=== PATIENT | male | born 1970 | race Caucasian/White ===

== ENCOUNTER 2023-07-23 11:27 | Emergency (ER) | payer SELFPAY ==
[2023-07-23 11:28] VITALS: BP 135/92; PULSE 93; RESP 18; TEMP 37.4; O2SAT 94; BMI 27.3
--- NOTE | 2023-07-23 11:39 | ED.VIS.DYS ---
HPI History of Present Illness Chief Complaint: Cold Sx PFSH PFSH Allergy/AdvReac Type Severity Reaction Status Date / Time No Known Allergies Allergy Verified 07/23/23 11:28 Social History Smoking Status: Former smoker EXAM Physical Exam Const Vital Signs: 07/23/23 11:28 07/23/23 12:09 07/23/23 12:09 Temperature 99.3 F H 98.1 F Temperature Source Temporal Oral Pulse Rate 93 82 Respiratory Rate 18 16 Respiratory Effort Respiratory Pattern Blood Pressure 135/92 H 136/84 H Blood Pressure Mean 106 101 Pulse Ox 94 96 97 Oxygen Delivery Method Room Air Room Air Room Air 07/23/23 12:10 07/23/23 13:26 Temperature 98.2 F Temperature Source Oral Pulse Rate 84 Respiratory Rate 20 H Respiratory Effort Normal Non-Labored Respiratory Pattern Normal Blood Pressure 137/84 H Blood Pressure Mean 101 Pulse Ox 98 Oxygen Delivery Method Room Air [facility] MDM Narrative Medical decision making narrative: HISTORY OF PRESENT ILLNESS: 52-year-old male here with cough congestion shortness of breath of 1 month. 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 The patient denies recent surgery in the last 4 weeks or immobilization in the last 3 days, denies previous diagnosis of DVT or PE, hemoptysis, unilateral leg swelling or malignancy with treatment the last 6 months or palliative. No estrogen use noted. REVIEW OF SYSTEMS: Pertinent positives: Shortness breath, congestion Pertinent negatives: Chest pain, hemoptysis PHYSICAL EXAM: Nursing triage notes reviewed, Vital signs reviewed Constitutional: please see mdm HENT: MMM Eyes: Pupils equal round and reactive to light, Extraocular muscles intact Neck: No stridor, no JVD, full neck ROM Lungs: Coarse breath sounds, faint expiratory wheezing. No increased work of breathing, no conversational dyspnea, no accessory muscle use, no nasal flaring. No respiratory distress noted Heart: Regular rate and rhythm, No murmurs, No rubs and No gallops, 2+ distal pulses (radial, femoral, posterior tibial) in all extremities Abdomen: Soft, there is no tenderness, rigidity, rebound or guarding, no obvious peritoneal signs, no palpable pulsatile abdominal masses, no auscultated abdominal bruit : No CVAT Extremities: No edema Neuro: No focal neurological deficits, cranial nerves II through XII intact, 5/5 strength in all extremities. Intact sensation to light touch in all extremities, 2+ reflexes bilateral patella tendons. Normal gait. No ataxia. Skin: No rash or lesions noted MEDICAL DECISION MAKING: Chief Complaint: Shortness of breath, congestion External records reviewed: No recent advanced imaging of the chest, no recent catheterizations, stress test or echocardiograms noted in the chart Factors affecting care: none Social determinants of health: Long-term tobacco use History obtained from others: none Consults: none MDM Narrative: Patient was hemodynamically stable, afebrile, nontoxic-appearing. Lung exam with coarse breath sounds faint wheezing I considered the following differential diagnosis: Infectious etiology such as pneumonia or COVID, arrhythmia, environmental lung injury (i.e. foam exposure), PE, ACS, anemia I obtained a broad lab and imaging work-up to further elucidate the etiology of the patient's complaints ALL IMAGES (IF OBTAINED) HAVE BEEN PERSONALLY REVIEWED AND INTERPRETED BY MYSELF. EKG with normal sinus rhythm, right bundle branch block, right axis deviation, normal intervals, no STEMI CBC without leukocytosis, mild anemia, no thrombocytopenia BMP with mild hyponatremia, no JOSE ANTONIO, COVID is positive High-sensitivity troponin is negative, no evidence of myocardial ischemia Chest x-ray read reviewed myself shows evidence of bilateral bibasilar infiltrates likely viral pneumonia given COVID positivity The synthesis of the patient's labs, images, history and physical exam are consistent with COVID-19 infection and likely COVID-19 pneumonia. The patient was ambulated without significant hypoxia. Has no significant past medical history to suggest need for Paxlovid. Is appropriate discharge home with instructions take Tylenol, ibuprofen return if symptoms change or worsen. The patient and/or family, caregivers express understanding. The patient and/or family, caregivers agrees with the plan. Shared decision making: I will have a discussion with the patient and or visitors regarding risk/benefits of further testing or admission. They will be made aware of of the risk/benefits inherent in this decision they will be given the opportunity to voice understanding. Total critical care time today provided was at least 0 minutes. This excludes separately billable procedures. Critical care time (if documented) is secondary to the patient having high probability of clinically significant/life threatening deterioration in the patient's condition which required my urgent intervention. Impression: 1. Dyspnea 2. COVID-19 3. Tachypnea 4. Anemia Dispo: Discharge Lab Data Attestation: I reviewed the patient's lab results. Labs: Laboratory Results - last 24 hr 07/23/23 12:04 WBC 10.5 RBC 3.59 L Hgb 10.8 L Hct 33.6 L MCV 93.6 MCH 30.1 MCHC 32.1 RDW Std Deviation 44.7 H RDW Coeff of Alysa 12.9 Plt Count 455 H MPV 8.6 Immature Gran % (Auto) 0.600 Neut % (Auto) 72.4 H Lymph % (Auto) 17.1 L Rich % (Auto) 9.6 Eos % (Auto) 0.0 Baso % (Auto) 0.3 Absolute Neuts (auto) 7.6 Absolute Lymphs (auto) 1.80 Nucleated RBC % 0 Sodium 135 L Potassium 3.8 Chloride 102 Carbon Dioxide 27.0 Anion Gap 6 BUN 10 Creatinine 0.68 L Estim Creat Clear Calc 131.21 Est GFR (MDRD) Af Amer 156 Est GFR (MDRD) Non-Af 129 BUN/Creatinine Ratio 14.6 Glucose 111 H Calcium 8.7 Troponin I High Sens 3 Radiography Diagnostic Testing: Clinical Impression(s) from Imaging Studies Chest X-Ray 07/23/23 12:37 IMPRESSION: Bilateral pleural effusions associated with bibasilar consolidation. Cardiomegaly. Electronically Signed: Kelsea Bolden MD at 13:00 EST , Discharge Plan Triage Chief Complaint: Cold Sx ED Provider: Olman Fernandez Dx/Rx/DC Orders Primary Care Provider: Care Physician,No Primary Referrals: Care Physician,No Primary [Primary Care Provider] -
--- NOTE | 2023-07-23 11:52 | EKG12_ITS ---
Test Reason : SOB Blood Pressure : / mmHG Vent. Rate : 081 BPM Atrial Rate : 081 BPM P-R Int : 146 ms QRS Dur : 138 ms QT Int : 384 ms P-R-T Axes : 030 031 021 degrees QTc Int : 446 ms Normal sinus rhythm Right bundle branch block Abnormal ECG Confirmed by BRANDT RODRIGUEZ, ALMA ROSA ([id number]), photo editor BRIAN ALEJANDRA ([id number]) on 07/25/2023 12:44:21 PM Referred By: Confirmed By:ALMA ROSA CARLTON MD
--- NOTE | 2023-07-23 12:01 | ED.RN ---
NO OLD EKG
[2023-07-23 12:09] VITALS: BP 136/84; PULSE 82; RESP 16; TEMP 36.7; O2SAT 96; O2SAT 97
[2023-07-23 12:12] LABS: Absolute Neutrophil Count 7.6 X10^3/uL (2.0-7.7); Basophil# 0.03 X10^3/uL; Basophil% 0.3 % (0-1); Hematocrit 33.6 % (40-54); Hemoglobin 10.8 g/dL (13.0-16.5); Lymphocyte % 17.1 % (19-41); Mean Corp Hgb Conc 32.1 g/dL (32-36); Mean Corpuscular Hgb 30.1 pg (27.0-32.0); Mean Corpuscular Volume 93.6 fL (80-94); Mean Platelet Vol. 8.6 fl (6.2-12.0); Monocyte# 1.01 X10^3/uL; Monocyte% 9.6 % (0-10); NRBC Flagged by Analyzer 0 % (0-5); Neutrophil # 7.62 X10^3/uL (2.7-7.7); Neutrophil % 72.4 % (47-70); Platelet Count 455 K/mm3 (150-450); RBC Distribution Width CV 12.9 % (11.6-14.6); RBC Distribution Width SD 44.7 fl (35.1-43.9); Red Blood Count 3.59 M/mm3 (4.6-6.2); White Blood Count 10.5 K/mm3 (4.4-11.0)
[2023-07-23] MEDS: Ipratropium/Albuterol Sulfate 3 ML AMPUL.NEB INHALATION (12:14)
[2023-07-23] MEDS: 0.9% Normal Saline (500mL Bag) 500 ML 999 ML IV (12:14)
[2023-07-23 12:15] VITALS: PULSE 82; RESP 28
[2023-07-23 12:29] LABS: Anion Gap 6 (5-15); BUN 10 mg/dL (7-18); BUN/Creat Ratio 14.6 RATIO (10-20); Calcium,Total 8.7 mg/dL (8.5-10.1); Chloride 102 mmol/L (98-107); Creatinine, Serum 0.68 mg/dL (0.70-1.30); EST Glomerular Filtration Rate 129 mL/min (>60); Est Glom Filt Rate - Afr Amer 156 mL/min (>60); Estimated Creatinine Clearance 131.21 ml/min; Glucose 111 mg/dL (74-106); Potassium 3.8 mmol/L (3.5-5.1); Sodium Level 135 mmol/L (136-145); Troponin-I HS 3 pg/mL (3.0-78.0)
--- NOTE | 2023-07-23 12:37 | RAD_ITS ---
INDICATION: Shortness of breath EXAMINATION/TECHNIQUE: X-RAY - XR Chest 2 Views COMPARISON: No relevant prior comparison study available FINDINGS: LINES/DEVICES: None. LUNGS: There are bilateral pleural effusions associated with bibasilar ill-defined opacities. No pneumothorax. MEDIASTINUM AND CARDIOVASCULAR STRUCTURES: There is cardiomegaly. Central airways and mediastinal contour are unremarkable. BONES AND SOFT TISSUES: Unremarkable. RAD/Chest PA and Lateral IMPRESSION: Bilateral pleural effusions associated with bibasilar consolidation. Cardiomegaly. Electronically Signed: Kelsea Bolden MD at 13:00 EST ,
[2023-07-23 13:26] VITALS: BP 137/84; PULSE 84; RESP 20; TEMP 36.8; O2SAT 98
[2023-07-23 14:17] VITALS: BP 147/82; PULSE 87; RESP 22; O2SAT 98
[2023-07-23 14:37] VITALS: BP 127/82; PULSE 81; RESP 19; O2SAT 98
== END 2023-07-23 14:38 | disposition home or self-care (01) ==
PROVIDERS: Emergency Provider Emergency Medicine; Visit Provider Emergency Medicine
DX: U07.1 COVID-19 (principal); R06.82 Tachypnea, not elsewhere classified; D64.9 Anemia, unspecified; Z87.891 Personal history of nicotine dependence
CPT/HCPCS: 71046; 80048; 84484; 85025; 87428; 93005; 94640; 96360; 96361; 99284; J7040; A4216